=== PATIENT | female | born 1975 | race Caucasian/White ===

== ENCOUNTER → 2024-10-18 08:56 | Outpatient (REF) | payer BC, SELFPAY ==
[2024-10-18 09:09] LABS: % Basophils 1.3 % (0-2); % Immature Granulocytes 0.2 % (0-0.5); % Lymphocytes 25.5 % (20.5-51.1); % Monocytes 8.2 % (1.7-9.3); % Neutrophils 62.8 % (42.2-75.2); Absolute Basophils 0.1 10^3/uL (0-0.2); Absolute Eosinophils 0.2 10^3/uL (0-0.7); Absolute Lymphocytes 2.6 10^3/uL (1.2-3.4); Absolute Monocytes 0.8 10^3/uL (0.1-0.6); Absolute Neutrophils 6.3 10^3/uL (1.4-6.5); Hematocrit 27.8 % (37.0-47.0); Hemoglobin 8.1 g/dL (12.0-16.0); Mean Corp Hgb Conc. 29.1 g/dL (33.0-37.0); Mean Corpuscular Hgb 19.3 pg (27.0-31.0); Mean Corpuscular Volume 66.3 fL (81.0-99.0); Mean Platelet Volume 10.2 fL (7.4-10.4); Nucleated Red Blood Cells % 0 %; Platelet Count 515 10^3/uL (130-400); Red Blood Cell Count 4.19 10^6/uL (4.20-5.40); Red Cell Dist. Width 20.7 % (11.5-14.5); White Blood Cell Count 10.1 10^3/uL (4.8-10.8)
[2024-10-18 09:15] LABS: ALT (SGPT) 12 U/L (0-35); AST (SGOT) 21 U/L (14-36); Albumin 4.2 g/dl (3.5-5.0); Alkaline Phosphatase 93 U/L (38-126); Blood Urea Nitrogen 10 mg/dl (7-17); Calcium 9.6 mg/dl (8.4-10.2); Carbon Dioxide 24 mmol/L (22-30); Chloride 107 mmol/L (98-107); Glucose 97 mg/dl (70-99); HDL Cholesterol 68 mg/dl; Iron 34 ug/dl (37-170); LDL Cholesterol, Calculated 103 mg/dl; Potassium 4.1 mmol/L (3.5-5.1); Sodium 142 mmol/L (135-145); Total Bilirubin 0.8 mg/dl (0.2-1.3); Total Cholesterol 185 mg/dl (50-199); Total Protein 7.6 g/dl (6.3-8.2); Triglyceride 71 mg/dl (10-149); Very Low Density Lipoprotein 14 mg/dl (0-30); eGFR > 60.00
[2024-10-18 09:31] LABS: Percent Saturation 7 % (20-50); Total Iron Binding Capacity 485 ug/dl (265-497)
[2024-10-18 09:36] LABS: Vitamin D, 25-OH*** 26.4 ng/mL (30-80)
[2024-10-18 09:54] LABS: Ferritin 3.8 ng/ml (6.24-137)
[2024-10-18 10:25] LABS: Vitamin B12 549 pg/ml (239-931)
[2024-10-18 11:57] LABS: Folate > 20.0 ng/ml (2.76-20)
[2024-10-18 12:50] LABS: TSH Reflex To Free T4 0.88 uIU/ml (0.47-4.68)
== END ==
LOC: REG 08:56
PROVIDERS: ATTENDING PHYSICIAN Physician Assistant Medical
DX: Z00.00 Encounter for general adult medical examination without abnormal findings (principal)
CPT/HCPCS: 36415; 80053; 80061; 82306; 82607; 82728; 82746; 83540; 83550; 84443; 85025

== ENCOUNTER 2024-11-12 13:43 | Outpatient (RCR) | payer BC, SELFPAY ==
[2024-11-05 14:08] VITALS: BP 190/111
[2024-11-05] MEDS: VENOFER 110 MG IV (14:10)
[2024-11-05 15:17] VITALS: BP 190/108
[2024-11-12 13:50] VITALS: BP 188/98
[2024-11-12] MEDS: VENOFER 110 MG IV (14:12)
[2024-11-12 15:30] VITALS: BP 200/100
== END 2024-11-13 09:21 | disposition home or self-care (01) ==
LOC: OID 13:43
PROVIDERS: ATTENDING PHYSICIAN Physician Assistant Medical
DX: D50.9 Iron deficiency anemia, unspecified (principal); K90.0 Celiac disease
CPT/HCPCS: 96365; J1756

== ENCOUNTER 2024-11-20 06:28 | Day surgery (SDC) | payer BC, SELFPAY | END 2024-11-20 16:55 | disposition home or self-care (01) | LOC: GI 06:28 | PROVIDERS: ATTENDING PHYSICIAN Internal Medicine Gastroenterology | DX: D50.0 Iron deficiency anemia secondary to blood loss (chronic) (principal); K64.0 First degree hemorrhoids; K63.3 Ulcer of intestine; R12 Heartburn; K25.9 Gastric ulcer, unspecified as acute or chronic, without hemorrhage or perforation; K31.89 Other diseases of stomach and duodenum; K52.89 Other specified noninfective gastroenteritis and colitis; K29.50 Unspecified chronic gastritis without bleeding; K20.80 Other esophagitis without bleeding | CPT/HCPCS: 45380; 43239; 88305; 88342 ==

== ENCOUNTER 2024-12-03 13:48 | Outpatient (RCR) | payer BC, SELFPAY ==
[2024-11-19 13:50] VITALS: BP 185/98
[2024-11-19] MEDS: VENOFER 110 MG IV (14:02)
[2024-11-26] MEDS: VENOFER 110 MG IV (14:21)
[2024-11-26 14:28] VITALS: BP 190/110
--- NOTE | 2024-11-26 14:36 | PTCARENOTE ---
Addendum entered by Monik Miranda RN 11/26/24 16:07:
1600 BP remains elevated at 180/110 HR 122. Spoke with Zabrina BARLOW at [facility]. Pt remains asymptomatic. Pt scheduled for BP check on 11/29/24 at 0930 in their office. pt instructed to go to Ed for any symptoms
Original Note:
Pt here for cycle 4 Venofer Pt has had consistently elevated blood pressure since start of treatment. Pt was seen by PCP and started on Diovan 2 weeks ago. Pt denies any headaches, blurred vision, or dizziness. Pt has recheck with PCP in one week to
re-evaluate Blood pressure.
[2024-11-26 16:00] VITALS: BP 180/110
[2024-12-03 13:50] VITALS: BP 190/110
[2024-12-03] MEDS: VENOFER 110 MG IV (14:10)
[2024-12-03 14:45] VITALS: BP 190/90
[2024-12-03 15:24] VITALS: BP 190/95
== END 2024-12-04 09:42 | disposition home or self-care (01) ==
LOC: OID 13:48
PROVIDERS: ATTENDING PHYSICIAN Physician Assistant Medical
DX: D50.9 Iron deficiency anemia, unspecified (principal); K90.0 Celiac disease
CPT/HCPCS: 96365; J1756

== ENCOUNTER → 2024-12-19 09:39 | Outpatient (REF) | payer BC, SELFPAY ==
[2024-12-20 23:03] LABS: H. pylori Breath Test Negative (Negative)
== END ==
LOC: CLAB 09:39
PROVIDERS: ATTENDING PHYSICIAN Internal Medicine Gastroenterology
DX: K29.70 Gastritis, unspecified, without bleeding (principal)
CPT/HCPCS: 83013

== ENCOUNTER → 2025-01-06 08:59 | Outpatient (REF) | payer BC, SELFPAY ==
[2025-01-06 09:21] LABS: % Basophils 0.9 % (0-2); % Eosinophils 1.3 % (0-6); % Immature Granulocytes 0.4 % (0-0.5); % Lymphocytes 21.6 % (20.5-51.1); % Neutrophils 69.8 % (42.2-75.2); Absolute Basophils 0.1 10^3/uL (0-0.2); Absolute Eosinophils 0.1 10^3/uL (0-0.7); Absolute Lymphocytes 1.7 10^3/uL (1.2-3.4); Absolute Monocytes 0.5 10^3/uL (0.1-0.6); Absolute Neutrophils 5.5 10^3/uL (1.4-6.5); Hematocrit 38.4 % (37.0-47.0); Hemoglobin 12.6 g/dL (12.0-16.0); Mean Corp Hgb Conc. 32.8 g/dL (33.0-37.0); Mean Corpuscular Hgb 27.6 pg (27.0-31.0); Mean Corpuscular Volume 84.2 fL (81.0-99.0); Mean Platelet Volume 9.7 fL (7.4-10.4); Nucleated Red Blood Cells % 0 %; Platelet Count 387 10^3/uL (130-400); Red Blood Cell Count 4.56 10^6/uL (4.20-5.40); Red Cell Dist. Width 21.6 % (11.5-14.5); White Blood Cell Count 7.8 10^3/uL (4.8-10.8)
[2025-01-06 10:36] LABS: C-Reactive Protein < 5.00 mg/L (0.0-10.00)
[2025-01-06 10:49] LABS: ALT (SGPT) 15 U/L (0-35); AST (SGOT) 18 U/L (14-36); Albumin 3.9 g/dl (3.5-5.0); Alkaline Phosphatase 98 U/L (38-126); Blood Urea Nitrogen 12 mg/dl (7-17); Calcium 9.2 mg/dl (8.4-10.2); Carbon Dioxide 27 mmol/L (22-30); Chloride 104 mmol/L (98-107); Direct Bilirubin 0.4 mg/dl (0.0-0.4); Glucose 89 mg/dl (70-99); Iron 68 ug/dl (37-170); Potassium 3.7 mmol/L (3.5-5.1); Sodium 137 mmol/L (135-145); Total Bilirubin 0.6 mg/dl (0.2-1.3); Total Protein 7.1 g/dl (6.3-8.2); eGFR > 60.00
[2025-01-06 10:56] LABS: IgA 316 mg/dl (70-400); IgG 1472 mg/dl (700-1600); IgM 81 mg/dl (40-230)
[2025-01-06 11:11] LABS: Ferritin 22.9 ng/ml (6.24-137)
[2025-01-07 15:55] LABS: Hepatitis B Surface Antigen Negative (Negative)
[2025-01-07 16:13] LABS: Hepatitis B Core Ab, Total Negative (Negative)
[2025-01-07 18:20] LABS: Hepatitis B Surface Antibody Negative
[2025-01-08 11:54] LABS: Quantiferon Plus TB2 minus NIL 0.01 IU/mL (<=0.34); Quantiferon TB Gold Plus Negative (Negative)
[2025-01-08 13:12] LABS: tTG IgA Antibody 7.1 EU/ml (0-19); tTG IgG Antibody 14.1 EU/ml (0-19)
== END ==
LOC: REG 08:59
PROVIDERS: ATTENDING PHYSICIAN Internal Medicine Gastroenterology; FAMILY PHYSICIAN Physician Assistant Medical
DX: K50.00 Crohn's disease of small intestine without complications (principal); D50.0 Iron deficiency anemia secondary to blood loss (chronic)
CPT/HCPCS: 80053; 82248; 82728; 82784; 83516; 83540; 85025; 86140; 86231; 86480; 86704; 86706; 87340

== ENCOUNTER → 2025-01-14 11:46 | Outpatient (REF) | payer BC, SELFPAY | LOC: REG 11:46 | PROVIDERS: ATTENDING PHYSICIAN Internal Medicine Gastroenterology; FAMILY PHYSICIAN Physician Assistant Medical | DX: K29.70 Gastritis, unspecified, without bleeding (principal); K50.00 Crohn's disease of small intestine without complications | CPT/HCPCS: 36415; 83993; 87338 ==

== ENCOUNTER → 2025-03-27 09:55 | Outpatient (REF) | payer BC, SELFPAY ==
[2025-03-31 01:24] LABS: Mild Peanut Ara h 8 <0.10 kU/L (<=0.09); Severe Peanut Ara h 1 <0.10 kU/L (<=0.09); Severe Peanut Ara h 2 <0.10 kU/L (<=0.09); Severe Peanut Ara h 3 <0.10 kU/L (<=0.09); Severe Peanut Ara h 6 <0.10 kU/L (<=0.09); Severe Peanut Ara h 9 <0.10 kU/L (<=0.09)
== END ==
LOC: REG 09:55
PROVIDERS: ATTENDING PHYSICIAN Physician Assistant Medical
DX: Z91.010 Allergy to peanuts (principal); T78.1XXA Other adverse food reactions, not elsewhere classified, initial encounter
CPT/HCPCS: 86003; 86008

== ENCOUNTER 2025-04-24 06:19 | Day surgery (SDC) | payer BC, SELFPAY | END 2025-04-24 11:13 | disposition home or self-care (01) | LOC: GI 06:19 | PROVIDERS: ATTENDING PHYSICIAN Internal Medicine Gastroenterology | DX: K50.918 Crohn's disease, unspecified, with other complication (principal); K63.3 Ulcer of intestine; K62.89 Other specified diseases of anus and rectum; K64.9 Unspecified hemorrhoids; K29.70 Gastritis, unspecified, without bleeding; K29.80 Duodenitis without bleeding; K31.89 Other diseases of stomach and duodenum; K52.89 Other specified noninfective gastroenteritis and colitis | CPT/HCPCS: 45380; 43239; 88305; 88342 ==

== ENCOUNTER → 2025-05-22 09:35 | Outpatient (REF) | payer BC, SELFPAY ==
[2025-05-22 09:48] LABS: Hematocrit 40.5 % (37.0-47.0); Hemoglobin 13.6 g/dL (12.0-16.0); Mean Corp Hgb Conc. 33.6 g/dL (33.0-37.0); Mean Corpuscular Volume 92.7 fL (81.0-99.0); Nucleated Red Blood Cells % 0 %; Platelet Count 430 10^3/uL (130-400); Red Cell Dist. Width 13.2 % (11.5-14.5)
[2025-05-22 10:24] LABS: ALT (SGPT) 60 U/L (0-35); AST (SGOT) 60 U/L (14-36); Albumin 4.1 g/dl (3.5-5.0); Alkaline Phosphatase 187 U/L (38-126); Blood Urea Nitrogen 18 mg/dl (7-17); Calcium 9.4 mg/dl (8.4-10.2); Carbon Dioxide 30 mmol/L (22-30); Chloride 101 mmol/L (98-107); Glucose 94 mg/dl (70-99); Iron 91 ug/dl (37-170); Potassium 3.7 mmol/L (3.5-5.1); Sodium 136 mmol/L (135-145); Total Iron Binding Capacity 360 ug/dl (265-497); Total Protein 7.8 g/dl (6.3-8.2); eGFR > 60.00
[2025-05-22 12:44] LABS: Ferritin 37.1 ng/ml (6.24-137)
== END ==
LOC: REG 09:35
PROVIDERS: ATTENDING PHYSICIAN Internal Medicine Gastroenterology; FAMILY PHYSICIAN Physician Assistant Medical
DX: D50.0 Iron deficiency anemia secondary to blood loss (chronic) (principal); K50.80 Crohn's disease of both small and large intestine without complications
CPT/HCPCS: 36415; 80053; 82248; 82728; 83540; 83550; 85025

== ENCOUNTER → 2025-06-16 08:19 | Outpatient (REF) | payer BC, SELFPAY ==
[2025-06-16 09:23] LABS: ALT (SGPT) 31 U/L (0-35); AST (SGOT) 33 U/L (14-36); Albumin 4.3 g/dl (3.5-5.0); Alkaline Phosphatase 173 U/L (38-126); Total Protein 7.8 g/dl (6.3-8.2)
== END ==
LOC: CLAB 08:19
PROVIDERS: ATTENDING PHYSICIAN Internal Medicine Gastroenterology
DX: R74.8 Abnormal levels of other serum enzymes (principal)
CPT/HCPCS: 36415; 80076